=== PATIENT | male | born 1965 | race African-American/Black ===

== ENCOUNTER 2018-07-26 19:57 | Emergency (ER) | payer MEDICAID ==
[~2018-07-26] VITALS: Ht 172.7 cm; Wt 77.1 kg
[2018-07-26 20:12] VITALS: BP 143/74
[2018-07-26 22:01] LABS: Basophils # (auto) 0 uL; Basophils % (auto) 0.1 % (0.0-2.0); Eosinophils # (auto) 0 uL; Hemoglobin 11.1 g/dL (13.5-17.5); Lymphocytes # (auto) 0.9 uL; Lymphocytes % (auto) 5.5 % (10.0-50.0); Mean Corpuscular Hemoglobin 28.8 pg (28.0-32.0); Mean Corpuscular Hgb Conc. 32.7 g/dL (32.0-36.0); Mean Corpuscular Volume 88.1 fL (80.0-100.0); Monocytes # (auto) 1.3 uL; Monocytes % (auto) 8.1 % (0.0-12.0); Neutrophils % (auto) 86.3 % (37.0-80.0); Nucleated Red Blood Cells % 0.1 %; Platelet Count (auto) 224 10^3/uL (140-450); Red Blood Cells 3.85 10^6/uL (4.5-5.90); Red Cell Distribution Width 14.3 % (11.8-14.3); White Blood Cell 16.3 10^3/uL (4.4-10.8)
[2018-07-26 22:09] LABS: Calcium 8.7 mg/dL (8.5-10.1); Potassium 4.3 mmol/L (3.5-5.1)
[2018-07-26 22:16] LABS: Albumin 2.3 g/dL (3.4-5.0); BUN/Creatinine Ratio 21.8; Bilirubin, Total 0.8 mg/dL (0.2-1.0)
== END 2018-07-26 23:59 | disposition left against medical advice (07) ==
LOC: EDBD 19:57 → ER 19:57
DX: R11.2 Nausea with vomiting, unspecified (principal); Z53.21 Procedure and treatment not carried out due to patient leaving prior to being seen by health care provider
CPT/HCPCS: 36415; 80053; 85025

== ENCOUNTER 2018-08-01 16:49 | Inpatient (IN) | payer MEDICAID ==
[~2018-08-01] VITALS: Ht 182.9 cm; Wt 85.7 kg
[2018-08-01] MEDS ORDERED: SODIUM CHLORIDE 0.9% 1,000 ML IV ONE ×2 (18:32→21:00)
[2018-08-01] MEDS ORDERED: InsuLIN REG 1unit/0.01ml Soln (100units/ml) IV ONE ×2 (18:45→23:15)
[2018-08-01] MEDS ORDERED: OCTREOTIDE ACETATE 100 MCG in SODIUM CHL 0.9% 50 ML IV ONE (21:00)
[2018-08-01] MEDS: OCTREOTIDE ACETATE 500 MCG in SODIUM CHL 0.9% 99 ML IV SCH (21:30)
[2018-08-01] MEDS ORDERED: OCTREOTIDE ACETATE 500 MCG/ML VL ONE (21:32)
[2018-08-01] MEDS ORDERED: OCTREOTIDE ACETATE 100 MCG/ML VL ONE (21:32)
[2018-08-01 21:53] LABS: Basophils # (auto) 0 uL; Basophils % (auto) 0.1 % (0.0-2.0); Eosinophils # (auto) 0 uL; Eosinophils % (auto) 0.1 % (0.0-7.0); Hematocrit 37.2 % (41.0-53.0); Hemoglobin 11.7 g/dL (13.5-17.5); Lymphocytes # (auto) 0.8 uL; Lymphocytes % (auto) 3.3 % (10.0-50.0); Mean Corpuscular Hgb Conc. 31.5 g/dL (32.0-36.0); Mean Corpuscular Volume 89.1 fL (80.0-100.0); Monocytes # (auto) 1.4 uL; Monocytes % (auto) 5.4 % (0.0-12.0); Neutrophils # (auto) 22.8 uL; Neutrophils % (auto) 91.1 % (37.0-80.0); Platelet Count (auto) 378 10^3/uL (140-450); Red Blood Cells 4.17 10^6/uL (4.5-5.90); Red Cell Distribution Width 15.5 % (11.8-14.3)
[2018-08-01] MEDS ORDERED: LABETALOL HCL 5 MG/ML ML 20ML VIAL IV ONE (22:00)
[2018-08-01 22:18] LABS: Lactic Acid w/Reflex 2.3 mmol/L (0.4-2.0)
[2018-08-01 22:41] LABS: Albumin 1.6 g/dL (3.4-5.0); Anion Gap 21 (5-15); BUN/Creatinine Ratio 35.7; Blood Urea Nitrogen 60 mg/dL (7-18); Calcium 9.7 mg/dL (8.5-10.1); Carbon Dioxide 19 mmol/L (21-32); Chloride 99 mmol/L (98-107); GFR African American 55 mL/min; GFR Non-African American 45 mL/min; Magnesium 2.8 mg/dL (1.6-2.6); Potassium 4.8 mmol/L (3.5-5.1); Sodium 139 mmol/L (136-145)
[2018-08-01] MEDS ORDERED: SODIUM CHLORIDE 0.9% 2,000 ML IV ONE (22:45)
[2018-08-01 22:46] LABS: Alanine Aminotransferase 19 U/L (16-61); Alkaline Phosphatase 169 U/L (45-117); Aspartate Aminotransferase 31 U/L (15-37); Bilirubin, Total 1.7 mg/dL (0.2-1.0); Total Protein 8.7 g/dL (6.4-8.2)
[2018-08-01 22:53] LABS: Glucose 499 mg/dL (74-106)
[2018-08-01] MEDS ORDERED: InsuLIN R (HUMAN) 100 UNITS in SODIUM CHL 0.9% 99 ML IV SCH (23:15)
[2018-08-01] MEDS ORDERED: DEXTROSE (50%) 50ML SYRG IV PRN (23:15)
[2018-08-01] MEDS: SODIUM CHLORIDE 0.9% 1,000 ML IV SCH (23:26)
[2018-08-01] MEDS ORDERED: InsuLIN REG 1unit/0.01ml Soln (100units/ml) ONE (23:37)
[2018-08-01 23:41] LABS: INR 1.12 (0.9-1.15); Partial Thromboplastin Time 31.5 sec (23.78-33.04); Prothrombin Time 11.9 sec (9.27-12.13)
[2018-08-02] MEDS: ACCU-CHEK COMFORT CURVE STRIP VI SCH ×15 (00:18→21:22)
[2018-08-02] MEDS: SODIUM CHLORIDE 0.9% 1,000 ML IV SCH ×4 (01:31→18:57)
[2018-08-02] MEDS ORDERED: SODIUM CHLORIDE 0.9% 1,000 ML IV SCH (03:15)
[2018-08-02] MEDS ORDERED: PANTOPRAZOLE 40 MG/10 ML VIAL IV ONE (04:30)
[2018-08-02] MEDS ORDERED: VANCOMYCIN PER PHARMACY 0 MG IV SCH (04:45)
[2018-08-02] MEDS: PIPERACILLIN-TAZOB 3.375GM 100 ML IV SCH ×3 (06:07→18:56)
[2018-08-02 06:14] LABS: Calcium 9.5 mg/dL (8.5-10.1); Potassium 4.3 mmol/L (3.5-5.1)
[2018-08-02 06:16] LABS: BUN/Creatinine Ratio 39.2
[2018-08-02] MEDS ORDERED: OCTREOTIDE ACETATE 500 MCG/ML VL ONE (06:17)
[2018-08-02] MEDS: OCTREOTIDE ACETATE 500 MCG in SODIUM CHL 0.9% 99 ML IV SCH ×2 (06:26→16:12)
[2018-08-02 07:35] LABS: Urine Bacteria NONE SEEN /hpf (None Seen); Urine Blood Negative /uL (Negative); Urine Mucus FEW (None Seen); Urine WBC 1 /hpf (0 - 3)
[2018-08-02 08:40] LABS: Alcohol, Urine < 3.0 mg/dL (0-5); Amphetamine Screen, Urine NEGATIVE (NEGATIVE); Barbiturate Scree,Urine NEGATIVE (NEGATIVE); Benzodiazephine Screen, Urine NEGATIVE (NEGATIVE); Cannabinoid Screen, Urine NEGATIVE (NEGATIVE); Cocaine Screen, Urine NEGATIVE (NEGATIVE); Opiate Scree,Urine NEGATIVE (NEGATIVE); Phencyclidine Screen, Urine NEGATIVE (NEGATIVE)
[2018-08-02] MEDS ORDERED: VANCOMYCIN 1,250 MG in D5W 5% 250 ML IV ONE (09:00)
[2018-08-02] MEDS: PANTOPRAZOLE 40 MG/10 ML VIAL IV SCH ×2 (10:30→22:00)
[2018-08-02 10:48] LABS: BUN/Creatinine Ratio 36.6; Calcium 9.2 mg/dL (8.5-10.1); Potassium 3.9 mmol/L (3.5-5.1)
[2018-08-02] MEDS ORDERED: LIDOCAINE VISCOUS 2% 15ML UD ONE (13:02)
[2018-08-02] MEDS ORDERED: SODIUM CHLORIDE LOCK 10 ML ONE (13:02)
[2018-08-02] MEDS ORDERED: diphenhdrAMINE HCL 50 MG/1 ML VL ONE (13:03)
[2018-08-02] MEDS: MIDAZOLAM HCL 5 MG/ML-1ML VIAL ONE ×2 (13:45→13:48)
[2018-08-02] MEDS: fentaNYL CITRATE 100 MCG/2 ML VL ONE ×2 (13:45→13:48)
[2018-08-02 18:14] LABS: Basophils # (auto) 0 uL; Basophils % (auto) 0.1 % (0.0-2.0); Eosinophils # (auto) 0 uL; Eosinophils % (auto) 0.1 % (0.0-7.0); Hematocrit 34.1 % (41.0-53.0); Hemoglobin 10.6 g/dL (13.5-17.5); Lymphocytes # (auto) 1.2 uL; Lymphocytes % (auto) 4.6 % (10.0-50.0); Mean Corpuscular Hemoglobin 27.9 pg (28.0-32.0); Mean Corpuscular Volume 90.2 fL (80.0-100.0); Monocytes # (auto) 1.5 uL; Monocytes % (auto) 5.6 % (0.0-12.0); Neutrophils # (auto) 23.7 uL; Neutrophils % (auto) 89.6 % (37.0-80.0); Platelet Count (auto) 375 10^3/uL (140-450); Red Blood Cells 3.78 10^6/uL (4.5-5.90); Red Cell Distribution Width 15.9 % (11.8-14.3); White Blood Cell 26.4 10^3/uL (4.4-10.8)
[2018-08-02 18:35] LABS: BUN/Creatinine Ratio 32.8; Calcium 8.7 mg/dL (8.5-10.1); Potassium 4.1 mmol/L (3.5-5.1)
[2018-08-02 18:52] LABS: Magnesium 2.3 mg/dL (1.6-2.6); Phosphorus 1.8 mg/dL (2.5-4.90)
[2018-08-02] MEDS ORDERED: DEXTROSE (50%) 50ML SYRG IV PRN (22:15)
[2018-08-02] MEDS ORDERED: VANCOMYCIN 1GM/250ML 250 ML IV SCH (22:45)
--- NOTE | 2018-08-02 22:48 | NUR ---
Telemetry admit from [facility] admitted to Telemetry unit. Patient oriented to Adriana crockett RN, unit, room, bed, and unit policies regarding patient care and visiting hours. Patient now on continuous telemetry monitoring, tele box #43. Patient on room air and weighed by bedscale. Encouraged to call if he needs something. All questions and concerns addressed, patient verbalized understanding.
[2018-08-02 22:50] VITALS: BP 133/74
--- NOTE | 2018-08-02 23:30 | NUR ---
Unable to give antibiotic Patient due for Vanco but unable to get medication from [facility] because patient is not in the system yet. Will continue to check so I can administer medication. Patient also due for Zosyn at 0000, will give after Vanco.
[2018-08-03] MEDS ORDERED: HYDROcodone-ACET 5/325MG TAB PO PRN ×2 (00:55→10:45)
[2018-08-03] MEDS: PIPERACILLIN-TAZOB 3.375GM 100 ML IV SCH ×4 (02:11→20:25)
--- NOTE | 2018-08-03 02:38 | NUR ---
Hospitalist paged Patient requesting juice, checked patients blood sugar and it was 307. Hospitalist paged, will await call back. Will continue to monitor patient.
--- NOTE | 2018-08-03 02:50 | NUR ---
Hospitalist returned call Informed [place] of patients blood sugar and she gave orders to change Accu check to Q4 moderate scale. Orders repeated and confirmed.
[2018-08-03] MEDS: OCTREOTIDE ACETATE 500 MCG in SODIUM CHL 0.9% 99 ML IV SCH (03:00)
[2018-08-03] MEDS ORDERED: DEXTROSE (50%) 50ML SYRG IV PRN (03:30)
[2018-08-03] MEDS: ACCU-CHEK COMFORT CURVE STRIP VI SCH ×5 (03:31→20:25)
[2018-08-03] MEDS: InsuLIN REG 1unit/0.01ml Soln (100units/ml) SC SCH ×5 (03:35→20:37)
[2018-08-03 05:38] VITALS: BP 147/88
[2018-08-03] MEDS ORDERED: ACCU-CHEK COMFORT CURVE STRIP VI SCH ×2 (06:00→07:00)
--- NOTE | 2018-08-03 06:33 | NUR ---
Called Pharmacy Informed pharmacy that Vanco was given past the scheduled time, and Zosyn was given after Vanco. They said they will adjust the times for both medications.
--- NOTE | 2018-08-03 06:45 | NUR ---
Called Pharmacy regarding missing medication Patient had Sandostatin scheduled for 0300 but the medication was not found in any of the fridges. Informed pharmacy of this and they said that they will send up the medication and adjust the times.
[2018-08-03] MEDS ORDERED: InsuLIN REG 1unit/0.01ml Soln (100units/ml) SC SCH ×2 (07:00→22:00)
--- NOTE | 2018-08-03 07:30 | NUR ---
Opening Shift Note Assumed care of patient, awake and alert. No S/S of distress/SOB or pain. HOB semi-canada's position, side-rails up x2 for safety. Call light on hand, instructed on POC and to call for assist PRN, will continue to monitor for changes Q1hr and PRN.
[2018-08-03 07:39] LABS: Basophils # (auto) 0 uL; Basophils % (auto) 0.1 % (0.0-2.0); Eosinophils # (auto) 0 uL; Eosinophils % (auto) 0.1 % (0.0-7.0); Hemoglobin 9.2 g/dL (13.5-17.5); Lymphocytes # (auto) 1.7 uL; Lymphocytes % (auto) 6.8 % (10.0-50.0); Mean Corpuscular Hemoglobin 27.7 pg (28.0-32.0); Mean Corpuscular Hgb Conc. 31.8 g/dL (32.0-36.0); Mean Corpuscular Volume 87.3 fL (80.0-100.0); Monocytes # (auto) 1.2 uL; Monocytes % (auto) 4.9 % (0.0-12.0); Neutrophils # (auto) 21.5 uL; Neutrophils % (auto) 88.1 % (37.0-80.0); Platelet Count (auto) 283 10^3/uL (140-450); Red Blood Cells 3.32 10^6/uL (4.5-5.90); Red Cell Distribution Width 15.4 % (11.8-14.3); White Blood Cell 24.4 10^3/uL (4.4-10.8)
[2018-08-03 07:40] LABS: Albumin 1.2 g/dL (3.4-5.0); BUN/Creatinine Ratio 25.6; Calcium 7.8 mg/dL (8.5-10.1)
[2018-08-03 07:43] LABS: Bilirubin, Total 1.1 mg/dL (0.2-1.0); Total Protein 6.6 g/dL (6.4-8.2)
[2018-08-03 08:00] VITALS: BP 137/80
--- NOTE | 2018-08-03 08:00 | NUR ---
WOUND CARE Serosanguineous drainage with strong foul odor noted from wound of dorsal portion of left foot. Cleansed with wound cleanser and patted dry with sterile gauze. Patient tolerated well.
[2018-08-03 09:00] VITALS: BP 132/77
[2018-08-03] MEDS ORDERED: ONDANSETRON HCL 4 MG/2 ML VIAL IV PRN (10:45)
[2018-08-03] MEDS ORDERED: LORazepam 2MG/ML-1ML VIAL IV ONE (10:45)
[2018-08-03] MEDS: SODIUM CHLORIDE 0.9% 1,000 ML IV SCH ×2 (10:45→20:45)
[2018-08-03] MEDS: PANTOPRAZOLE 40 MG/10 ML VIAL IV SCH ×2 (11:59→22:26)
[2018-08-03] MEDS: VANCOMYCIN 1GM/250ML 250 ML IV SCH (11:59)
[2018-08-03 13:00] VITALS: BP 161/87
--- NOTE | 2018-08-03 16:15 | NUR ---
WOUND CARE NOTE: Wound care consult received. Patient is a 53yo male admitted for DKA with a history of HTN, diabetes, hyperlipidemia and Rt BKA. Patient noted to have wounds to left foot, right knee and left leg. Patient is seen with bedside RN, Lorna. Patient is alert but drowsy, denies pain. Last Panfilo score is 19. Patient with small wound to right knee, 1.5x1.5cm, open to air, covered with a serous scab. On left lower leg patient with a wound 5x7cm of unknown with etiology but appears to be a dried blister and is open to air. Patient's dorsal left foot with large necrotic wound measuring [id number] draining foul smelling drainage and to the plantar left foot a diabetic measures 3x2cm with no drainage. Patient with a pending podiatry consult. RECOMMENDATIONS: Nursing to cleanse left foot wounds with wound cleanser, pat dry, paint with betadine, cover with foam dressing, wrap with kerlex and secure, change daily and PRN saturation; further orders to be directed by clinical informatics manager; wound care team to follow. Addendum: 08/03/18 at 1847 by ALMAZ RICCI RN Amended: Links added.
[2018-08-03] MEDS: MORPHINE SULFATE 4 MG/ML SYR/VIAL IV PRN ×2 (16:27→20:38)
[2018-08-03 17:00] VITALS: BP 150/84
--- NOTE | 2018-08-03 17:00 | NUR ---
CALLED [phone]. TO OBTAIN HOME MEDICATIONS. NO REPLY, LEFT A MESSAGE AND CALL- BACK NUMBER.
--- NOTE | 2018-08-03 19:05 | NUR ---
Opening Shift Note Assumed care of patient, resting in bed. No S/S of distress or SOB. Instructed on POC and to call for assistance PRN, will continue to monitor for changes Q1hr and PRN.
[2018-08-03] MEDS ORDERED: INSUINJ48 SC (20:50)
[2018-08-03] MEDS ORDERED: LISI40TA PO (20:50)
[2018-08-03] MEDS ORDERED: ATOR1TAB PO (20:50)
[2018-08-03] MEDS ORDERED: DULO1CAP2 PO (20:50)
[2018-08-03] MEDS ORDERED: INSREG3 SC (20:50)
[2018-08-03] MEDS ORDERED: METF-370 PO (20:50)
[2018-08-03] MEDS ORDERED: AMLO5TAB13 PO (20:50)
--- NOTE | 2018-08-03 20:50 | NUR ---
HOME MEDICATIONS SPOKE WITH DAUGHTER, PETRA, RECEIVED LIST OF HOME MEDICATIONS. RECONCILED MEDICATION LIST COMPLETED--PRIMARY RN MADE AWARE
[2018-08-03 22:00] VITALS: BP 128/78
[2018-08-03] MEDS: INSULIN LANTUS (GLARGINE) 1 /0.01ml (100units/ml) SC SCH (22:26)
[2018-08-04] VITALS (7 sets, daily range): BP systolic 132–149; BP diastolic 76–88
[2018-08-04] MEDS: ACCU-CHEK COMFORT CURVE STRIP VI SCH ×6 (00:14→21:32)
[2018-08-04] MEDS: VANCOMYCIN 1GM/250ML 250 ML IV SCH ×2 (00:14→12:00)
[2018-08-04] MEDS: InsuLIN REG 1unit/0.01ml Soln (100units/ml) SC SCH ×6 (00:18→21:34)
[2018-08-04] MEDS: PIPERACILLIN-TAZOB 3.375GM 100 ML IV SCH ×4 (02:27→20:28)
[2018-08-04] MEDS: MORPHINE SULFATE 4 MG/ML SYR/VIAL IV PRN ×3 (04:17→16:37)
[2018-08-04 06:39] LABS: Basophils # (auto) 0 uL; Basophils % (auto) 0.1 % (0.0-2.0); Eosinophils # (auto) 0 uL; Eosinophils % (auto) 0.2 % (0.0-7.0); Hematocrit 29.1 % (41.0-53.0); Hemoglobin 9.3 g/dL (13.5-17.5); Lymphocytes # (auto) 1.7 uL; Lymphocytes % (auto) 8.5 % (10.0-50.0); Mean Corpuscular Hemoglobin 27.6 pg (28.0-32.0); Mean Corpuscular Hgb Conc. 31.9 g/dL (32.0-36.0); Mean Corpuscular Volume 86.7 fL (80.0-100.0); Monocytes % (auto) 4.9 % (0.0-12.0); Neutrophils # (auto) 17.4 uL; Neutrophils % (auto) 86.3 % (37.0-80.0); Nucleated Red Blood Cells % 0.1 %; Platelet Count (auto) 260 10^3/uL (140-450); Red Blood Cells 3.36 10^6/uL (4.5-5.90); Red Cell Distribution Width 15.3 % (11.8-14.3); White Blood Cell 20.1 10^3/uL (4.4-10.8)
[2018-08-04] MEDS: SODIUM CHLORIDE 0.9% 1,000 ML IV SCH ×2 (06:45→10:00)
[2018-08-04 06:47] LABS: BUN/Creatinine Ratio 21.5; Calcium 8.3 mg/dL (8.5-10.1); Potassium 3.5 mmol/L (3.5-5.1)
[2018-08-04] MEDS: PANTOPRAZOLE 40 MG TAB PO SCH ×2 (10:00→22:15)
--- NOTE | 2018-08-04 13:45 | NUR ---
NUTRITION CONSULT/ASSESSMENT NOTES Please refer to link notes of nutrition screen form filed under the intervention section of the plan of care for further details. Est. Needs: 1800 kcal to 2450 kcal (25-30 kcal/kgBW), 82 gms to 114 gms pro (1.0-1.4 gms/kgBW d/t severe hypoalbuminemia, wound healing). Will continue to monitor pertinent labs and reassess nutrient need prn Thank you for this consult. Addendum: 08/04/18 at [address] Amended: Links added.
--- NOTE | 2018-08-04 15:54 | NUR ---
PICC line placement Patient educated on need for PICC line placement. All risks and benefits explained and all questions and concerns addressed prior to procedure. Noted past medical history and allergies with no contraindications. INR and Plt counts within acceptable range. 4fr PICC line inserted the right brachial vein using [employer] US and Tip Location System. Sterile technique with maximum barrier precautions utilized. Blood return obtained and flushed easily with NS using proper technique. PICC secured with Stat-lock; biodisc and occlusive dressing applied. Stat portable chest x-ray obtained for PICC tip placement. *Baseline Arm Circumference 30CM. PICC lot # [id number] INTERNAL LENGTH: 47 CM EXTERNAL LENGTH 0 CM.
[2018-08-04] MEDS ORDERED: LIDOCAINE 1% (LOCAL ANESTH.) PF 5ml SDV ID ONE (16:15)
[2018-08-04] MEDS: Pro-Stat SF 30ml Vanilla PO SCH (18:00)
--- NOTE | 2018-08-04 19:45 | NUR ---
OPENING NOTES PT IS AWAKE AND ALERT X 4 WHILE ON ROOM AIR AND NO S/S OF DISTRESS. DRESSING ON LEFT FOOT CLEAN, DRY, AND INTACT. BED IN LOWEST POSITION WITH THE BRAKES ON AND CALL LIGHT IS WITHIN REACH. DISCUSSED POC WITH PATIENT, WILL CONTINUE TO MONITOR
[2018-08-04] MEDS: ASCORBIC ACID 500 MG TAB PO SCH (22:15)
[2018-08-04] MEDS: SODIUM CHLOR 0.9% PF (SALINE LOCK) 10ML VIAL/SYR IV SCH (22:15)
[2018-08-04] MEDS: INSULIN LANTUS (GLARGINE) 1 /0.01ml (100units/ml) SC SCH (22:35)
--- NOTE | 2018-08-05 00:30 | NUR ---
TEMP PATIENT FOUND IN BED AND VOMITED WHEN TURNED. VOMITUS WAS DARK GREEN SUBSTANCE. ALOC A&OX1 VS: TEMP 103.2 RECTAL; BP 86/54; HR 117; SPO2 82 AT 6L N/C. WILL START COOLING MEASURE. Addendum: 08/05/18 at 0335 by KIMMIE SILVA RN RN DISREGARD WRONG PATIENT
--- NOTE | 2018-08-05 00:35 | NUR ---
HOSPITALIST HOSPITALIST PAGED REGARDING PATIENTS CONDITION. AWAITING CALL BACK Addendum: 08/05/18 at 0335 by KIMMIE SILVA RN RN DISREGARD WRONG PATIENT
[2018-08-05] MEDS: ACCU-CHEK COMFORT CURVE STRIP VI SCH ×6 (01:43→23:09)
[2018-08-05] MEDS: VANCOMYCIN 1GM/250ML 250 ML IV SCH ×2 (01:43→12:50)
[2018-08-05] MEDS: MORPHINE SULFATE 4 MG/ML SYR/VIAL IV PRN ×2 (01:45→08:22)
[2018-08-05] MEDS: InsuLIN REG 1unit/0.01ml Soln (100units/ml) SC SCH ×6 (01:57→23:08)
[2018-08-05] MEDS: PIPERACILLIN-TAZOB 3.375GM 100 ML IV SCH ×2 (03:26→08:21)
[2018-08-05] MEDS: SODIUM CHLORIDE 0.9% 1,000 ML IV SCH (03:26)
[2018-08-05 05:07] VITALS: BP 128/65
[2018-08-05] MEDS: Pro-Stat SF 30ml Vanilla PO SCH ×2 (07:36→17:05)
--- NOTE | 2018-08-05 08:00 | NUR ---
Opening Shift Note Assumed care of patient, awake, alert and oriented X4. No S/S of distress/SOB, complains of left foot pain, 8/10, Lopez Cabrera scale. Tele# 43, sinus tachycardia @ 101 bpm. Right upper arm PICC single lumen port with dressing clean, dry and intact, patent and saline locked. Right AKA with healed stump, left foot dressing clean, dry an intact, see wound care photos. Instructed on POC and to call for assist PRN, verbalized understanding. Bed locked, in lowest position, call light within reach, will continue to monitor for changes Q1hr and PRN.
[2018-08-05 08:28] LABS: Basophils # (auto) 0 uL; Basophils % (auto) 0.1 % (0.0-2.0); Eosinophils # (auto) 0.1 uL; Eosinophils % (auto) 0.4 % (0.0-7.0); Hematocrit 28.6 % (41.0-53.0); Hemoglobin 9.1 g/dL (13.5-17.5); Lymphocytes # (auto) 1.8 uL; Lymphocytes % (auto) 9.2 % (10.0-50.0); Mean Corpuscular Hemoglobin 27.4 pg (28.0-32.0); Mean Corpuscular Hgb Conc. 31.9 g/dL (32.0-36.0); Monocytes # (auto) 0.9 uL; Monocytes % (auto) 4.4 % (0.0-12.0); Neutrophils # (auto) 17.3 uL; Neutrophils % (auto) 85.9 % (37.0-80.0); Platelet Count (auto) 242 10^3/uL (140-450); Red Blood Cells 3.33 10^6/uL (4.5-5.90); Red Cell Distribution Width 15.1 % (11.8-14.3); White Blood Cell 20.1 10^3/uL (4.4-10.8)
[2018-08-05 08:51] LABS: BUN/Creatinine Ratio 14.4; Calcium 8.1 mg/dL (8.5-10.1); Potassium 3.2 mmol/L (3.5-5.1)
[2018-08-05 09:38] VITALS: BP 145/67
[2018-08-05] MEDS: SODIUM CHLOR 0.9% PF (SALINE LOCK) 10ML VIAL/SYR IV SCH ×2 (09:41→23:06)
[2018-08-05] MEDS: ASCORBIC ACID 500 MG TAB PO SCH ×2 (09:42→23:07)
[2018-08-05] MEDS: MULTIPLE VITAMINS W/ MINERALS TAB PO SCH (09:42)
[2018-08-05] MEDS: PANTOPRAZOLE 40 MG TAB PO SCH ×2 (09:42→23:06)
[2018-08-05] MEDS ORDERED: POTASSIUM CHL 20 Meq TABLET PO ONE (10:15)
[2018-08-05] MEDS ORDERED: DEXTROSE (50%) 50ML SYRG IV PRN (10:15)
--- NOTE | 2018-08-05 10:15 | NUR ---
ROUNDS Dr Eckert at bedside for rounds, new orders received and followed through. Patient updated on plan of care, verbalized understanding.
[2018-08-05 12:02] VITALS: BP 139/70
[2018-08-05] MEDS: cefTRIAXone 1GM/50ML D5W 50 ML IV SCH (14:04)
[2018-08-05 16:46] VITALS: BP 97/54
--- NOTE | 2018-08-05 19:13 | NUR ---
Care endorsed to FATOUMATA Herrera, night nurse.
--- NOTE | 2018-08-05 19:30 | NUR ---
received pt from day rn poc reviewed
[2018-08-05 21:53] VITALS: BP 115/64
[2018-08-05] MEDS: INSULIN LANTUS (GLARGINE) 1 /0.01ml (100units/ml) SC SCH (23:08)
[2018-08-06] MEDS: VANCOMYCIN 1GM/250ML 250 ML IV SCH ×2 (00:16→11:42)
[2018-08-06] MEDS: MORPHINE SULFATE 4 MG/ML SYR/VIAL IV PRN ×3 (01:03→17:20)
--- NOTE | 2018-08-06 01:15 | NUR ---
awoke c/o pain 03/17 medicated as ordered, call light within reach, bed alarm intact
[2018-08-06 05:26] VITALS: BP 130/71
[2018-08-06 05:46] LABS: Basophils # (auto) 0 uL; Basophils % (auto) 0.1 % (0.0-2.0); Eosinophils # (auto) 0.1 uL; Eosinophils % (auto) 0.7 % (0.0-7.0); Hematocrit 27.7 % (41.0-53.0); Hemoglobin 8.8 g/dL (13.5-17.5); Lymphocytes # (auto) 2.2 uL; Lymphocytes % (auto) 12.2 % (10.0-50.0); Mean Corpuscular Hemoglobin 27.3 pg (28.0-32.0); Mean Corpuscular Hgb Conc. 31.6 g/dL (32.0-36.0); Mean Corpuscular Volume 86.4 fL (80.0-100.0); Monocytes # (auto) 0.8 uL; Monocytes % (auto) 4.5 % (0.0-12.0); Neutrophils # (auto) 14.7 uL; Neutrophils % (auto) 82.5 % (37.0-80.0); Platelet Count (auto) 226 10^3/uL (140-450); Red Cell Distribution Width 15.2 % (11.8-14.3); White Blood Cell 17.8 10^3/uL (4.4-10.8)
[2018-08-06 06:10] LABS: Potassium 3.7 mmol/L (3.5-5.1)
[2018-08-06 06:21] LABS: BUN/Creatinine Ratio 11.5; Calcium 8.1 mg/dL (8.5-10.1)
[2018-08-06] MEDS: ACCU-CHEK COMFORT CURVE STRIP VI SCH ×4 (06:58→22:30)
[2018-08-06] MEDS: InsuLIN REG 1unit/0.01ml Soln (100units/ml) SC SCH ×4 (06:59→22:32)
--- NOTE | 2018-08-06 07:07 | NUR ---
report given to am nurse poc reviewed
[2018-08-06 08:14] VITALS: BP 122/57
--- NOTE | 2018-08-06 09:00 | NUR ---
Opening Shift Note Assumed care of patient, awake and alert, oriented x 4 and verbally responsive. Respiratory even and unlabored. No S/S of distress/SOB or pain. Skin is warm and dry to touch, no s/s of hyperglycemia or hypoglycemia noted. Instructed on POC and to call for assist PRN, will continue to monitor for changes Q1hr and PRN.
[2018-08-06] MEDS: PANTOPRAZOLE 40 MG TAB PO SCH ×2 (09:05→22:29)
[2018-08-06] MEDS: SODIUM CHLOR 0.9% PF (SALINE LOCK) 10ML VIAL/SYR IV SCH ×2 (09:05→22:29)
[2018-08-06] MEDS: MULTIPLE VITAMINS W/ MINERALS TAB PO SCH (09:05)
[2018-08-06] MEDS: cefTRIAXone 1GM/50ML D5W 50 ML IV SCH (09:05)
[2018-08-06] MEDS: ASCORBIC ACID 500 MG TAB PO SCH ×2 (09:05→22:29)
[2018-08-06] MEDS: Pro-Stat SF 30ml Vanilla PO SCH ×2 (09:06→18:03)
[2018-08-06 09:24] VITALS: BP 122/57
[2018-08-06 12:10] VITALS: BP 134/68
[2018-08-06 17:03] VITALS: BP 138/76
[2018-08-06] MEDS: ALUM & MAG HYDROX-SIMETH LIQ(MAALOX) 30 ML PO PRN (17:38)
[2018-08-06] MEDS: LEVOFLOXACIN 750MG 150 ML IV SCH (17:38)
--- NOTE | 2018-08-06 19:57 | NUR ---
RECEIVED REPORT FROM DAY RN POC REVIEWED
[2018-08-06 21:58] VITALS: BP 135/76
--- NOTE | 2018-08-06 22:16 | NUR ---
RESTING COMFORTABLE WITH HOB UP BED ALARM INTACT CALL LIGHT WITHIN REACH
[2018-08-06] MEDS: INSULIN LANTUS (GLARGINE) 1 /0.01ml (100units/ml) SC SCH (22:31)
[2018-08-07] VITALS (7 sets, daily range): BP systolic 110–150; BP diastolic 64–78
[2018-08-07] MEDS: MORPHINE SULFATE 4 MG/ML SYR/VIAL IV PRN (05:31)
[2018-08-07 05:54] LABS: Basophils # (auto) 0 uL; Eosinophils # (auto) 0.1 uL; Eosinophils % (auto) 0.4 % (0.0-7.0); Hematocrit 23.8 % (41.0-53.0); Lymphocytes # (auto) 1.8 uL; Mean Corpuscular Hemoglobin 28.4 pg (28.0-32.0); Nucleated Red Blood Cells % 0.1 %; Red Cell Distribution Width 14.8 % (11.8-14.3)
[2018-08-07 05:58] LABS: Basophils % (auto) 0.2 % (0.0-2.0); Hemoglobin 7.8 g/dL (13.5-17.5); Lymphocytes % (auto) 11.4 % (10.0-50.0); Mean Corpuscular Hgb Conc. 32.9 g/dL (32.0-36.0); Mean Corpuscular Volume 86.6 fL (80.0-100.0); Monocytes % (auto) 6.4 % (0.0-12.0); Neutrophils % (auto) 81.6 % (37.0-80.0); Platelet Count (auto) 206 10^3/uL (140-450); Red Blood Cells 2.75 10^6/uL (4.5-5.90); White Blood Cell 15.9 10^3/uL (4.4-10.8)
[2018-08-07] MEDS: ACCU-CHEK COMFORT CURVE STRIP VI SCH ×4 (06:01→22:00)
[2018-08-07] MEDS: InsuLIN REG 1unit/0.01ml Soln (100units/ml) SC SCH ×4 (06:02→21:59)
--- NOTE | 2018-08-07 06:53 | NUR ---
REPORT GIVEN TO AM NURSE POC REVIEWED
--- NOTE | 2018-08-07 07:30 | NUR ---
Opening Shift Note Assumed care of patient, awake and alert, oriented x4 and verbally responsive. Respiratory even and unlabored. No S/S of distress/SOB or pain. Skin is warm and dry to touch. No s/s of hyperglycemia or hypoglycemia noted. Dressing to left foot, dry, intact, no drainage noted. Instructed on POC and to call for assist PRN, will continue to monitor for changes Q1hr and PRN.
[2018-08-07] MEDS: Pro-Stat SF 30ml Vanilla PO SCH ×2 (08:23→18:03)
--- NOTE | 2018-08-07 08:32 | NUR ---
Received a call from [facility] ([facility]) regarding patient has Medical cannot get IV ATB at home. Will notify hospitalist.
[2018-08-07] MEDS: ASCORBIC ACID 500 MG TAB PO SCH ×2 (08:56→21:59)
[2018-08-07] MEDS: MULTIPLE VITAMINS W/ MINERALS TAB PO SCH (08:56)
[2018-08-07] MEDS: PANTOPRAZOLE 40 MG TAB PO SCH ×2 (08:56→21:59)
[2018-08-07] MEDS: ALUM & MAG HYDROX-SIMETH LIQ(MAALOX) 30 ML PO PRN (08:58)
[2018-08-07] MEDS: SODIUM CHLOR 0.9% PF (SALINE LOCK) 10ML VIAL/SYR IV SCH ×2 (09:00→21:58)
[2018-08-07] MEDS ORDERED: MORPHINE SULFATE 4 MG/ML SYR/VIAL IV PRN (10:30)
--- NOTE | 2018-08-07 10:36 | NUR ---
SS ORDER FOR HOME IV ABX. I FAXED TO [facility] FOR INFUSION AND TO SEE IF THEY HAVE HH ATTACHED TO THEIR INFUSION COMPANY ALSO TO SEE IF THEY EVEN TAKE MEDICAL
--- NOTE | 2018-08-07 10:43 | NUR ---
Dressing change to left foot, cleanse left foot wounds with wound cleanser, pat dry, paint with betadine, cover with foam dressing, wrap with kerlex and secure.
[2018-08-07] MEDS: HYDROcodone-ACET 5/325MG TAB PO PRN (12:06)
--- NOTE | 2018-08-07 12:09 | NUR ---
T 99.8, cooling measure placed.
--- NOTE | 2018-08-07 13:00 | NUR ---
T 98.2, WILL CONTINUE TO MONITOR.
--- NOTE | 2018-08-07 13:42 | NUR ---
[facility] has refused pt due to insurance
[2018-08-07] MEDS: VANCOMYCIN 1GM/250ML 250 ML IV SCH (14:03)
--- NOTE | 2018-08-07 16:24 | NUR ---
PRIMARY RN NOTIFIED THAT PT WAS REFUSED BY INFUSION COMPANY
[2018-08-07] MEDS: LEVOFLOXACIN 750MG 150 ML IV SCH (18:38)
--- NOTE | 2018-08-07 19:00 | NUR ---
Opening Shift Note Assumed care of the patient from the day shift RN. The patient is A&Ox4, no signs or symptoms of distress. Educated the patient on POC and patient verbalized understanding. The patient's call light is within reach and bed is in the lowest, locked position. Will round hourly and continue to monitor.
[2018-08-07] MEDS: MORPHINE SULFATE 10 MG/ML INJ 1ML SDV IV PRN (20:44)
[2018-08-07] MEDS: INSULIN LANTUS (GLARGINE) 1 /0.01ml (100units/ml) SC SCH (21:59)
[2018-08-08] VITALS (14 sets, daily range): BP systolic 111–153; BP diastolic 53–101
[2018-08-08] MEDS: VANCOMYCIN 1GM/250ML 250 ML IV SCH (01:39)
[2018-08-08] MEDS: MORPHINE SULFATE 10 MG/ML INJ 1ML SDV IV PRN ×2 (03:45→20:33)
[2018-08-08 05:31] LABS: Basophils # (auto) 0 uL; Eosinophils # (auto) 0.1 uL; Eosinophils % (auto) 0.4 % (0.0-7.0); Lymphocytes # (auto) 1.7 uL; Nucleated Red Blood Cells % 0.1 %; White Blood Cell 13.9 10^3/uL (4.4-10.8)
[2018-08-08 05:34] LABS: Basophils % (auto) 0.1 % (0.0-2.0); Hematocrit 18.4 % (41.0-53.0); Mean Corpuscular Hemoglobin 28.3 pg (28.0-32.0); Mean Corpuscular Hgb Conc. 32.5 g/dL (32.0-36.0); Mean Corpuscular Volume 87.1 fL (80.0-100.0); Monocytes % (auto) 7.1 % (0.0-12.0); Neutrophils # (auto) 11.2 uL; Neutrophils % (auto) 80.4 % (37.0-80.0); Platelet Count (auto) 223 10^3/uL (140-450); Red Blood Cells 2.12 10^6/uL (4.5-5.90)
[2018-08-08 05:54] LABS: Calcium 8.1 mg/dL (8.5-10.1); Potassium 4.1 mmol/L (3.5-5.1)
--- NOTE | 2018-08-08 05:58 | NUR ---
Critical Hgb Roger from Hematology reported a hgb of 6.0. Will notify hospitalist for orders.
[2018-08-08] MEDS: ACCU-CHEK COMFORT CURVE STRIP VI SCH ×4 (06:33→22:39)
[2018-08-08] MEDS: InsuLIN REG 1unit/0.01ml Soln (100units/ml) SC SCH ×4 (06:33→22:40)
--- NOTE | 2018-08-08 06:35 | NUR ---
Orders Received HospitalistValentin, returned page regarding low hemoglobin. Orders for type and screen and 1 unit of packed RBCs. Will carry out and continue to monitor.
--- NOTE | 2018-08-08 07:30 | NUR ---
Opening Shift Note Assumed care of patient, awake and alert, oriented x 4 and verbally responsive. Respiratory even and unlabored. No S/S of distress/SOB or pain. Skin is warm and dry to touch. No s/s of hyperglycemia or hypoglycemia noted. Instructed on POC and to call for assist PRN, will continue to monitor for changes Q1hr and PRN.
--- NOTE | 2018-08-08 08:00 | NUR ---
T 99.2, cooling measure placed, will continue to monitor.
--- NOTE | 2018-08-08 08:55 | NUR ---
Blood Initiated Order received and verified with additional nurse by read back. Baseline vitals obtained and charted. Patient no complaints of pain. Initiated at rate 60 for 15 mins then increased as tolerated. Will continue to monitor patient for change or indications of reaction. Additional charting as follows in [facility] transfusion history.
[2018-08-08] MEDS: MULTIPLE VITAMINS W/ MINERALS TAB PO SCH (09:00)
[2018-08-08] MEDS: SODIUM CHLOR 0.9% PF (SALINE LOCK) 10ML VIAL/SYR IV SCH ×2 (09:00→22:39)
[2018-08-08] MEDS: Pro-Stat SF 30ml Vanilla PO SCH ×2 (09:00→18:20)
[2018-08-08] MEDS: PANTOPRAZOLE 40 MG TAB PO SCH ×2 (09:00→22:24)
[2018-08-08] MEDS: ASCORBIC ACID 500 MG TAB PO SCH ×2 (09:00→22:24)
[2018-08-08 09:08] LABS: BUN/Creatinine Ratio 10.7
--- NOTE | 2018-08-08 09:18 | NUR ---
Recheck T 98.6, will continue to monitor.
[2018-08-08] MEDS ORDERED: CLINDAMYCIN 600MG IV 50 ML IV ONE (10:15)
[2018-08-08] MEDS: FLORASTOR (S. BOULARDII) 250 MG CAP PO SCH (10:31)
[2018-08-08] MEDS: HYDROcodone-ACET 5/325MG TAB PO PRN ×2 (10:31→22:37)
[2018-08-08] MEDS: ACETAMINOPHEN 500 MG TAB PO PRN (12:31)
[2018-08-08] MEDS: CLINDAMYCIN 600MG IV 50 ML IV SCH ×2 (13:50→22:25)
--- NOTE | 2018-08-08 16:05 | NUR ---
Dressing change to left foot, cleanse left foot wounds with wound cleanser, pat dry, paint with betadine, cover with foam dressing, wrap with kerlex and secure.
[2018-08-08] MEDS: LEVOFLOXACIN 750MG 150 ML IV SCH (17:30)
[2018-08-08] MEDS: ALUM & MAG HYDROX-SIMETH LIQ(MAALOX) 30 ML PO PRN (20:31)
--- NOTE | 2018-08-08 21:01 | NUR ---
Opening shift note Patient in bed alert and oriented x 4, verbally coherent, able to make needs known. Patient complained of pain to left leg and stomach distress. will administer medication as ordered by MD. Plan of care discussed, patient verbalized understanding. All needs attended, will continue to monitor.
[2018-08-08] MEDS: INSULIN LANTUS (GLARGINE) 1 /0.01ml (100units/ml) SC SCH (22:40)
[2018-08-09] VITALS (7 sets, daily range): BP systolic 113–133; BP diastolic 60–90
[2018-08-09] MEDS: MORPHINE SULFATE 10 MG/ML INJ 1ML SDV IV PRN ×5 (00:20→22:10)
--- NOTE | 2018-08-09 05:00 | NUR ---
Unable to draw blood from the PICC line. Cruise Guide made aware and informed.
[2018-08-09 05:48] LABS: Basophils # (auto) 0 uL; Basophils % (auto) 0.1 % (0.0-2.0); Eosinophils # (auto) 0.1 uL; Eosinophils % (auto) 0.6 % (0.0-7.0); Hematocrit 28.1 % (41.0-53.0); Hemoglobin 9.1 g/dL (13.5-17.5); Lymphocytes # (auto) 1.9 uL; Lymphocytes % (auto) 13.4 % (10.0-50.0); Mean Corpuscular Hgb Conc. 32.6 g/dL (32.0-36.0); Monocytes # (auto) 0.9 uL; Monocytes % (auto) 6.6 % (0.0-12.0); Neutrophils # (auto) 11.1 uL; Neutrophils % (auto) 79.3 % (37.0-80.0); Nucleated Red Blood Cells % 0.1 %; Platelet Count (auto) 289 10^3/uL (140-450); Red Blood Cells 3.26 10^6/uL (4.5-5.90); White Blood Cell 14.1 10^3/uL (4.4-10.8)
[2018-08-09] MEDS: CLINDAMYCIN 600MG IV 50 ML IV SCH ×3 (06:20→21:42)
[2018-08-09] MEDS: ACCU-CHEK COMFORT CURVE STRIP VI SCH ×4 (06:20→21:43)
[2018-08-09] MEDS: InsuLIN REG 1unit/0.01ml Soln (100units/ml) SC SCH ×4 (06:21→21:57)
[2018-08-09] MEDS: Pro-Stat SF 30ml Vanilla PO SCH ×2 (08:00→18:26)
--- NOTE | 2018-08-09 08:00 | NUR ---
Opening Shift Note Assumed care of patient, awake and alert. No S/S of distress/SOB or pain at this time. Currently on room air. Instructed on POC and to call for assist PRN, call light within reach, dressing to left foot CDI, will continue to monitor for changes Q1hr and PRN.
[2018-08-09] MEDS: SODIUM CHLOR 0.9% PF (SALINE LOCK) 10ML VIAL/SYR IV SCH ×2 (10:00→21:42)
[2018-08-09] MEDS: PANTOPRAZOLE 40 MG TAB PO SCH ×2 (10:06→21:41)
[2018-08-09] MEDS: MULTIPLE VITAMINS W/ MINERALS TAB PO SCH (10:06)
[2018-08-09] MEDS: FLORASTOR (S. BOULARDII) 250 MG CAP PO SCH (10:06)
[2018-08-09] MEDS: ASCORBIC ACID 500 MG TAB PO SCH ×2 (10:07→21:41)
--- NOTE | 2018-08-09 10:30 | NUR ---
MD AT BEDSIDE DISCUSSING POC WITH PT, CONT CARE
--- NOTE | 2018-08-09 11:44 | NUR ---
Nutrition Follow-up Notes Wt.: 88.5 kg Pt was sleeping with no family by bedside. per pt records pt with GI bleed duet o gastric ulcer. pt with foot ulcer on abx. pt with no distress noted. pt is currently on CCHO 60 gm with prostat 1 packet bid with adequate PO of > 75% x 4 per RN doc Est. Needs: 1800 kcal to 2450 kcal (25-30 kcal/kgBW), 82 gms to 114 gms pro (1.0-1.4 gms/kgBW d/t severe hypoalbuminemia, wound healing). Will continue to monitor pertinent labs and reassess nutrient need prn Labs: GLU 235 H, CA 8.1 L. Skin: Panfilo scale 16, mod risk, pt with DFU per masonry supervisor. Pls refer to roll cutting operator's notes for details re: tx plans. pt on MVI/C GI: Pt had 1 BM on 08/06 per masonry supervisor. PES: Altered nutrition related lab values r/t acute/chronic medical condition aeb hyperglycemia, elev. BUN,HbA1c, LFTs, hyperbilirubinemia, hypocalcemia an severe hypoalbuminemia Will continue to monitor PO intake, skin status, pertinent labs and weight trend. F/u in 3 to 5 days. Rec.: 1.) Continue close supervision and feeding assistance prn during meals. 2.) Refer to CDE/RD for further nutrition educ. and weight monitoring upon discharge. 3.) Continue current plan of care.
--- NOTE | 2018-08-09 14:15 | NUR ---
DRESSING CHANGE PT MEDICATED PRIOR, DRESSING CHANGE PER ORDERS, MINIMAL DRAINAGE NOTED, FOUL ODOR PRESENT. PT TOLERATING WELL, CONT CARE
--- NOTE | 2018-08-09 16:43 | NUR ---
FAMILY UPDATE CALLED FAMILY MEMBER PETRA, PER PATIENT REQUEST TO UPDATE ON POC, NO ANSWER, WILL ATTEMPT AT A LATER TIME, [facility]
[2018-08-09] MEDS: LEVOFLOXACIN 750MG 150 ML IV SCH (17:45)
--- NOTE | 2018-08-09 19:30 | NUR ---
Opening shift note Patient in bed alert and oriented watching TV. Pt's respiration even and unlabored, denies pain or discomfort at this time. Plan of care discussed, will continue to monitor.
--- NOTE | 2018-08-09 20:42 | NUR ---
Received call back from spouse. Update on POC given after password provided. Spouse verbalized understanding.
[2018-08-09] MEDS: INSULIN LANTUS (GLARGINE) 1 /0.01ml (100units/ml) SC SCH (21:57)
[2018-08-10 05:50] VITALS: BP 119/60
[2018-08-10 06:01] LABS: Basophils # (auto) 0 uL; Basophils % (auto) 0.3 % (0.0-2.0); Eosinophils # (auto) 0.1 uL; Eosinophils % (auto) 0.4 % (0.0-7.0); Hematocrit 27.9 % (41.0-53.0); Hemoglobin 9.1 g/dL (13.5-17.5); Lymphocytes % (auto) 13.3 % (10.0-50.0); Mean Corpuscular Hemoglobin 28.3 pg (28.0-32.0); Mean Corpuscular Hgb Conc. 32.8 g/dL (32.0-36.0); Mean Corpuscular Volume 86.3 fL (80.0-100.0); Monocytes # (auto) 0.9 uL; Monocytes % (auto) 6.2 % (0.0-12.0); Neutrophils # (auto) 11.7 uL; Neutrophils % (auto) 79.8 % (37.0-80.0); Nucleated Red Blood Cells % 0.1 %; Platelet Count (auto) 310 10^3/uL (140-450); Red Blood Cells 3.23 10^6/uL (4.5-5.90); Red Cell Distribution Width 15.4 % (11.8-14.3); White Blood Cell 14.7 10^3/uL (4.4-10.8)
[2018-08-10] MEDS: ACCU-CHEK COMFORT CURVE STRIP VI SCH ×4 (06:02→22:19)
[2018-08-10] MEDS: CLINDAMYCIN 600MG IV 50 ML IV SCH ×3 (06:02→22:19)
[2018-08-10] MEDS: InsuLIN REG 1unit/0.01ml Soln (100units/ml) SC SCH ×4 (06:09→22:27)
--- NOTE | 2018-08-10 07:45 | NUR ---
Opening Patient awake, eating breakfast. Bed in lowest position, call light within reach, no distress noted at this time Will f/u with morning assessment.
[2018-08-10] MEDS: Pro-Stat SF 30ml Vanilla PO SCH ×2 (08:00→18:09)
[2018-08-10 09:00] VITALS: BP 104/57
[2018-08-10] MEDS: MORPHINE SULFATE 10 MG/ML INJ 1ML SDV IV PRN ×2 (10:07→22:20)
[2018-08-10] MEDS: ASCORBIC ACID 500 MG TAB PO SCH ×2 (10:08→22:19)
[2018-08-10] MEDS: PANTOPRAZOLE 40 MG TAB PO SCH ×2 (10:08→22:19)
[2018-08-10] MEDS: MULTIPLE VITAMINS W/ MINERALS TAB PO SCH (10:08)
[2018-08-10] MEDS: FLORASTOR (S. BOULARDII) 250 MG CAP PO SCH (10:08)
[2018-08-10] MEDS: SODIUM CHLOR 0.9% PF (SALINE LOCK) 10ML VIAL/SYR IV SCH ×2 (10:08→22:19)
[2018-08-10] MEDS ORDERED: PATIENTS OWN MEDICATION PO SCH (12:45)
[2018-08-10 13:00] VITALS: BP 120/66
[2018-08-10 17:00] VITALS: BP 126/71
[2018-08-10] MEDS: LEVOFLOXACIN 750MG 150 ML IV SCH (17:01)
--- NOTE | 2018-08-10 19:00 | NUR ---
closing patient in bed, bed in lowest position, call light within reach. no distress noted at this time endorsed care to noc nurse
--- NOTE | 2018-08-10 20:40 | NUR ---
Opening Shift Note Assumed care of patient, awake and alert, oriented x4. No S/S of distress/SOB, c/o left foot pain 03/17, educated on pain mgt, will medicate as ordered and will reassess. Instructed on POC and to call for assist PRN, will continue to monitor for changes Q1hr and PRN. Side rails up x2, bed in lowest locked position. Continue care.
[2018-08-10 21:43] VITALS: BP 119/65
[2018-08-10] MEDS: CLARITHROMYCIN 500 MG PO SCH (22:19)
[2018-08-10] MEDS: INSULIN LANTUS (GLARGINE) 1 /0.01ml (100units/ml) SC SCH (22:27)
[2018-08-11] MEDS: MORPHINE SULFATE 10 MG/ML INJ 1ML SDV IV PRN ×3 (02:25→22:23)
[2018-08-11 05:03] VITALS: BP 116/74
[2018-08-11 05:13] LABS: Basophils # (auto) 0 uL; Basophils % (auto) 0.2 % (0.0-2.0); Eosinophils # (auto) 0.2 uL; Hematocrit 26.7 % (41.0-53.0); Hemoglobin 8.6 g/dL (13.5-17.5); Lymphocytes # (auto) 2.1 uL; Lymphocytes % (auto) 13.8 % (10.0-50.0); Mean Corpuscular Hemoglobin 27.7 pg (28.0-32.0); Mean Corpuscular Hgb Conc. 32.1 g/dL (32.0-36.0); Mean Corpuscular Volume 86.3 fL (80.0-100.0); Monocytes # (auto) 0.8 uL; Monocytes % (auto) 5.2 % (0.0-12.0); Neutrophils % (auto) 79.8 % (37.0-80.0); Platelet Count (auto) 344 10^3/uL (140-450); Red Cell Distribution Width 15.8 % (11.8-14.3)
[2018-08-11 05:31] LABS: BUN/Creatinine Ratio 14.4; Calcium 8.4 mg/dL (8.5-10.1); Potassium 4.2 mmol/L (3.5-5.1)
[2018-08-11] MEDS: ACCU-CHEK COMFORT CURVE STRIP VI SCH ×4 (06:06→22:28)
[2018-08-11] MEDS: InsuLIN REG 1unit/0.01ml Soln (100units/ml) SC SCH ×4 (06:06→22:29)
[2018-08-11] MEDS: CLINDAMYCIN 600MG IV 50 ML IV SCH (06:06)
--- NOTE | 2018-08-11 07:40 | NUR ---
opening patient asleep in bed, bed in lowest position, call light within reach. No distress noted at this time. Contact precautions are off per noc nurse, and results new MRSA of nares is negative from 08/03. Todays plan talk to MD about a stool softener per patient request HGB 8.6 trending down WBC 15 trending up RBC 3.10 trending down Sodium 134 calcium 8.4
[2018-08-11] MEDS: Pro-Stat SF 30ml Vanilla PO SCH ×2 (08:00→18:00)
[2018-08-11 09:00] VITALS: BP 164/70
[2018-08-11] MEDS: PANTOPRAZOLE 40 MG TAB PO SCH ×2 (10:00→22:24)
[2018-08-11] MEDS: ASCORBIC ACID 500 MG TAB PO SCH ×2 (10:01→22:24)
[2018-08-11] MEDS: MULTIPLE VITAMINS W/ MINERALS TAB PO SCH (10:01)
[2018-08-11] MEDS: CLARITHROMYCIN 500 MG PO SCH ×2 (10:01→22:24)
[2018-08-11] MEDS: FLORASTOR (S. BOULARDII) 250 MG CAP PO SCH (10:01)
[2018-08-11] MEDS: SODIUM CHLOR 0.9% PF (SALINE LOCK) 10ML VIAL/SYR IV SCH ×2 (10:05→22:25)
[2018-08-11 13:00] VITALS: BP 137/75
--- NOTE | 2018-08-11 13:19 | NUR ---
md katherine fortune confirmed antibiotic administration, no plans for discharge
[2018-08-11 17:00] VITALS: BP 124/83
[2018-08-11] MEDS: LEVOFLOXACIN 750MG 150 ML IV SCH (17:24)
--- NOTE | 2018-08-11 19:00 | NUR ---
closing patient in bed, bed in lowest position, call light within reach. no distress noted at this time endorsed care to noc nurse
--- NOTE | 2018-08-11 20:00 | NUR ---
Opening Shift Note Assumed care of patient, awake and alert, oriented x4. No S/S of distress/SOB, pain. Instructed on POC and to call for assist PRN, will continue to monitor for changes Q1hr and PRN. Side rails up x2, bed in lowest locked position. Continue care.
--- NOTE | 2018-08-11 21:10 | NUR ---
REPORT GIVEN TO ALOK HAM TO ASSUME PT CARE.
[2018-08-11 22:00] VITALS: BP 124/65
[2018-08-11] MEDS: AMOXICILLIN/CLAVUL 875 MG TAB PO SCH (22:24)
[2018-08-11] MEDS: ACETAMINOPHEN 500 MG TAB PO PRN (22:24)
[2018-08-11] MEDS: INSULIN LANTUS (GLARGINE) 1 /0.01ml (100units/ml) SC SCH (22:28)
[2018-08-12] MEDS: MORPHINE SULFATE 10 MG/ML INJ 1ML SDV IV PRN ×4 (04:20→21:04)
--- NOTE | 2018-08-12 04:35 | NUR ---
DRESSING CHANGED TO LEFT FOOT AND JOSEPH. PATIENT TOLERATED WELL.
[2018-08-12 05:00] VITALS: BP 122/66
[2018-08-12 05:14] LABS: Basophils # (auto) 0 uL; Basophils % (auto) 0.3 % (0.0-2.0); Eosinophils # (auto) 0.1 uL; Eosinophils % (auto) 1.1 % (0.0-7.0); Hematocrit 26.6 % (41.0-53.0); Hemoglobin 8.5 g/dL (13.5-17.5); Lymphocytes % (auto) 15.5 % (10.0-50.0); Mean Corpuscular Hemoglobin 27.6 pg (28.0-32.0); Mean Corpuscular Volume 86.1 fL (80.0-100.0); Monocytes # (auto) 0.7 uL; Monocytes % (auto) 5.3 % (0.0-12.0); Neutrophils # (auto) 10.2 uL; Neutrophils % (auto) 77.8 % (37.0-80.0); Platelet Count (auto) 363 10^3/uL (140-450); Red Blood Cells 3.08 10^6/uL (4.5-5.90); Red Cell Distribution Width 15.5 % (11.8-14.3); White Blood Cell 13.2 10^3/uL (4.4-10.8)
[2018-08-12 05:32] LABS: Albumin 1.2 g/dL (3.4-5.0); BUN/Creatinine Ratio 12.5; Calcium 8.1 mg/dL (8.5-10.1); Magnesium 1.9 mg/dL (1.6-2.6); Potassium 4.2 mmol/L (3.5-5.1)
[2018-08-12 05:43] LABS: Bilirubin, Total 0.5 mg/dL (0.2-1.0); CRP High Sensitivity 15.4 mg/dL (< 0.3); Total Protein 7.4 g/dL (6.4-8.2)
[2018-08-12] MEDS: InsuLIN REG 1unit/0.01ml Soln (100units/ml) SC SCH ×4 (06:38→21:08)
[2018-08-12] MEDS: ACCU-CHEK COMFORT CURVE STRIP VI SCH ×4 (06:38→21:14)
--- NOTE | 2018-08-12 07:30 | NUR ---
Opening Shift Note Assumed care of patient, awake and alert. No S/S of distress/SOB. stated tolerable pain at this time. Instructed on POC and to call for assist PRN, will continue to monitor for changes Q1hr and PRN. Per pt, he have a right prosthetic leg which he uses to ambulate at home but he is unsure where it is now and whether it was lost in the ER. Pt stated he will ask his first as it's possible that she took it home
[2018-08-12 08:00] VITALS: BP 117/70
[2018-08-12 08:35] VITALS: BP 117/70
[2018-08-12] MEDS: PANTOPRAZOLE 40 MG TAB PO SCH ×2 (09:19→21:13)
[2018-08-12] MEDS: FLORASTOR (S. BOULARDII) 250 MG CAP PO SCH (09:19)
[2018-08-12] MEDS: AMOXICILLIN/CLAVUL 875 MG TAB PO SCH ×2 (09:19→21:13)
[2018-08-12] MEDS: ASCORBIC ACID 500 MG TAB PO SCH ×2 (09:19→21:13)
[2018-08-12] MEDS: MULTIPLE VITAMINS W/ MINERALS TAB PO SCH (09:19)
[2018-08-12] MEDS: SODIUM CHLOR 0.9% PF (SALINE LOCK) 10ML VIAL/SYR IV SCH ×2 (09:20→21:14)
[2018-08-12] MEDS: CLARITHROMYCIN 500 MG PO SCH ×2 (09:20→21:14)
[2018-08-12] MEDS: Pro-Stat SF 30ml Vanilla PO SCH ×2 (09:26→18:04)
--- NOTE | 2018-08-12 10:50 | NUR ---
WOUND DRESSING PER NOC RN, DRESSING WAS JUST CHANGED THIS AM. CHANGE PRN, OTHERWISE, DRESSING CHANGE WILL BE DUE TOMORROW MORNING.
[2018-08-12 12:44] VITALS: BP 122/66
--- NOTE | 2018-08-12 14:00 | NUR ---
DEMETRI JARVIS MADE AWARE OF PT'S MISSING PROSTHETIC LEG.
--- NOTE | 2018-08-12 14:34 | NUR ---
CALLED ER RE: PT'S LEG PROSTHESIS. PER ER THEY DON'T HAVE IT DOWN THERE. SUGGESTED THAT WE CHECK WITH EVS.
--- NOTE | 2018-08-12 14:35 | NUR ---
PAGED EVS PER CHEMICAL LIBRARIAN SHE WILL PAGED THE STATISTICAL TECHNICIAN. WAITING FOR CALL BACK.
--- NOTE | 2018-08-12 16:00 | NUR ---
NO CALL FROM EVS STUNNER RE-PAGED COMPENSATION CONSULTING MANAGER. WILL WAIT FOR CALL BACK.
--- NOTE | 2018-08-12 17:00 | NUR ---
STILL NO CALL BACK FROM [facility]S DEPT.
[2018-08-12 17:02] VITALS: BP 99/63
[2018-08-12] MEDS: LEVOFLOXACIN 750MG 150 ML IV SCH (18:04)
--- NOTE | 2018-08-12 19:13 | NUR ---
CLOSING NOTES PT UP IN BED, EATING DINNER AND WATCHING TV. VERBALIZED COMFORT AND TOLERABLE PAIN. NO DISTRESS NOTED.
--- NOTE | 2018-08-12 19:35 | NUR ---
Opening Shift Note Assumed care of patient, awake and alert. No S/S of distress/SOB or pain. Instructed on POC and to call for assist PRN, will continue to monitor for changes Q1hr and PRN.
[2018-08-12] MEDS: INSULIN LANTUS (GLARGINE) 1 /0.01ml (100units/ml) SC SCH (21:13)
[2018-08-12 22:00] VITALS: BP 107/62
[2018-08-13] MEDS: MORPHINE SULFATE 10 MG/ML INJ 1ML SDV IV PRN ×4 (03:52→21:56)
[2018-08-13 05:00] VITALS: BP 118/63
[2018-08-13 05:20] LABS: Basophils # (auto) 0 uL; Basophils % (auto) 0.3 % (0.0-2.0); Hemoglobin 8.3 g/dL (13.5-17.5); Lymphocytes # (auto) 2.7 uL; Monocytes # (auto) 0.7 uL
[2018-08-13 05:22] LABS: Eosinophils # (auto) 0.2 uL; Eosinophils % (auto) 1.3 % (0.0-7.0); Hematocrit 25.7 % (41.0-53.0); Lymphocytes % (auto) 19.1 % (10.0-50.0); Mean Corpuscular Hemoglobin 27.6 pg (28.0-32.0); Mean Corpuscular Hgb Conc. 32.2 g/dL (32.0-36.0); Mean Corpuscular Volume 85.8 fL (80.0-100.0); Monocytes % (auto) 4.8 % (0.0-12.0); Neutrophils # (auto) 10.5 uL; Neutrophils % (auto) 74.5 % (37.0-80.0); Platelet Count (auto) 358 10^3/uL (140-450); Red Cell Distribution Width 15.6 % (11.8-14.3)
[2018-08-13 05:25] LABS: Albumin 1.4 g/dL (3.4-5.0); BUN/Creatinine Ratio 14.3; Calcium 8.4 mg/dL (8.5-10.1); Magnesium 1.9 mg/dL (1.6-2.6); Potassium 3.8 mmol/L (3.5-5.1)
[2018-08-13 05:35] LABS: Bilirubin, Total 0.5 mg/dL (0.2-1.0); CRP High Sensitivity 15.3 mg/dL (< 0.3); Phosphorus 3.1 mg/dL (2.5-4.90); Total Protein 7.8 g/dL (6.4-8.2)
[2018-08-13] MEDS: InsuLIN REG 1unit/0.01ml Soln (100units/ml) SC SCH ×4 (06:40→21:55)
[2018-08-13] MEDS: ACCU-CHEK COMFORT CURVE STRIP VI SCH ×4 (06:41→21:55)
--- NOTE | 2018-08-13 06:45 | NUR ---
AM BLOOD SUGAR 62 INSULIN HELD. PATIENT ASYMPTOMATIC BUT 240 ML'S OF JUICE GIVEN. WILL MONITOR.
--- NOTE | 2018-08-13 07:04 | NUR ---
CARE ENDORSED TO DAY NURSE AFTER SBAR REPORT GIVEN. PATIENT RESTING IN BED. NO DISTRESS NOTE.
[2018-08-13 08:00] VITALS: BP 122/73
[2018-08-13 08:47] VITALS: BP 122/73
[2018-08-13] MEDS: MULTIPLE VITAMINS W/ MINERALS TAB PO SCH (09:49)
[2018-08-13] MEDS: FLORASTOR (S. BOULARDII) 250 MG CAP PO SCH (09:49)
[2018-08-13] MEDS: AMOXICILLIN/CLAVUL 875 MG TAB PO SCH ×2 (09:49→21:54)
[2018-08-13] MEDS: ASCORBIC ACID 500 MG TAB PO SCH ×2 (09:49→21:55)
[2018-08-13] MEDS: PANTOPRAZOLE 40 MG TAB PO SCH ×2 (09:49→21:55)
[2018-08-13] MEDS: SODIUM CHLOR 0.9% PF (SALINE LOCK) 10ML VIAL/SYR IV SCH ×2 (09:50→22:00)
[2018-08-13] MEDS: CLARITHROMYCIN 500 MG PO SCH ×2 (09:50→21:54)
[2018-08-13] MEDS: Pro-Stat SF 30ml Vanilla PO SCH ×2 (09:50→18:26)
--- NOTE | 2018-08-13 10:30 | NUR ---
WOUND CARE NOTE: IN TO SEE PATIENT AT THIS TIME FOR WOUND REEVALUATION. PATIENT HAS CURRENT MARY SCORE OF 18. PATIENT'S LLE SHOWS NO CHANGE, WITH PAD/PVD WITH GANGRENE NOTED TO LLE FROM TOES TO MID JOSEPH. CLEANSED/IRRIGATED SKIN WITH BETADINE RINSE, COVERING WITH FOAM AND KERLIX WRAP PER MD ORDER. ELEVATED LLE UP ONTO PILLOW FOR EDEMA CONTROL. RECOMMEND: CONTINUED FOLLOW UP BY LIGHT TECHNICIAN, CONTINUATION WITH ALL WOUND CARE ORDERS PREVIOUSLY PRESCRIBED BY MD. WOUND CARE TEAM WILL CONTINUE TO MONITOR. WOUND PHOTOS WERE TAKEN AT THIS TIME FOR REFERENCE. Addendum: 08/13/18 at 1410 by Halley Donnelly RN Amended: Links added.
[2018-08-13 12:59] VITALS: BP 126/74
[2018-08-13] MEDS: SODIUM CHLORIDE 0.9% 1,000 ML IV SCH ×2 (16:13→23:20)
[2018-08-13] MEDS: ALBUMIN 25% 100 ML IV SCH ×2 (16:13→23:15)
--- NOTE | 2018-08-13 16:30 | NUR ---
PAIN PT CALLED FOR PAIN MEDS. VERBALIZED PAIN ON FOOT 9. MORPHINE IV GIVEN ORDERED. TOLERATED WELL.
[2018-08-13 17:00] VITALS: BP 119/79
[2018-08-13] MEDS: LEVOFLOXACIN 750MG 150 ML IV SCH (17:29)
--- NOTE | 2018-08-13 18:00 | NUR ---
RIGHT LEG PROSTHESIS FOUND IN ER. PT AND HIS ARE AWARE. PROSTHESIS IS NOW AT BEDSIDE.
--- NOTE | 2018-08-13 19:30 | NUR ---
CLOSING NOTES REPORT GIVEN TO UNA UP RN. PT RESTING IN BED, WATCHING TV. NO DISTRESS NOTED. VERBALIZED COMFORT.
--- NOTE | 2018-08-13 20:00 | NUR ---
OPENING NOTE RECEIVED REPORT FROM VANESSA RN. ASSUMING ROLE OF CARE OF PATIENT AT THIS TIME. PATIENT SHOWING NO SIGN OF DISTRESS, SHORTNESS OF BREATH, BUT PATIENT STATES PAIN AT 9/10. WILL MEDICATE WHEN AVAILABLE. LEVAQUIN MEDICATION STILL INFUSING, WILL ADMINISTER ALBUMIN WHEN FINISHED. PATIENT EDUCATED ON PLAN OF CARE FOR THE NIGHT. PATIENT VERBALIZED UNDERSTANDING. BED LOWERED, CALL LIGHT WITHIN REACH, AND PATIENT WILL BE ROUNDED ON EVERY HOUR AND NEEDED.
[2018-08-13] MEDS: INSULIN LANTUS (GLARGINE) 1 /0.01ml (100units/ml) SC SCH (21:55)
[2018-08-13 22:00] VITALS: BP 138/83
--- NOTE | 2018-08-13 22:00 | NUR ---
TEMP RECHECKED. PATIENT TEMP WAS 99.9. RECHECK 99.0. PATIENT APPEARS STABLE. WILL CONTINUE TO MONITOR.
[2018-08-14] MEDS: ALBUMIN 25% 100 ML IV SCH (02:00)
[2018-08-14] MEDS: MORPHINE SULFATE 10 MG/ML INJ 1ML SDV IV PRN (03:51)
[2018-08-14 05:00] VITALS: BP 134/67
[2018-08-14 05:06] LABS: Basophils # (auto) 0 uL; Eosinophils # (auto) 0.2 uL; Lymphocytes # (auto) 1.6 uL; Mean Corpuscular Hemoglobin 28.4 pg (28.0-32.0); Mean Corpuscular Hgb Conc. 33.1 g/dL (32.0-36.0); Monocytes # (auto) 0.6 uL
[2018-08-14 05:09] LABS: Basophils % (auto) 0.2 % (0.0-2.0); Eosinophils % (auto) 1.9 % (0.0-7.0); Hematocrit 23.8 % (41.0-53.0); Hemoglobin 7.9 g/dL (13.5-17.5); Lymphocytes % (auto) 15.3 % (10.0-50.0); Monocytes % (auto) 5.3 % (0.0-12.0); Neutrophils # (auto) 8.3 uL; Neutrophils % (auto) 77.3 % (37.0-80.0); Platelet Count (auto) 306 10^3/uL (140-450); Red Blood Cells 2.77 10^6/uL (4.5-5.90); Red Cell Distribution Width 15.5 % (11.8-14.3); White Blood Cell 10.7 10^3/uL (4.4-10.8)
[2018-08-14 05:23] LABS: Albumin 1.9 g/dL (3.4-5.0); Magnesium 1.9 mg/dL (1.6-2.6); Potassium 4.1 mmol/L (3.5-5.1)
[2018-08-14 05:36] LABS: BUN/Creatinine Ratio 12.5; Bilirubin, Total 0.6 mg/dL (0.2-1.0); CRP High Sensitivity 13.7 mg/dL (< 0.3); Total Protein 7.4 g/dL (6.4-8.2)
[2018-08-14] MEDS: ACCU-CHEK COMFORT CURVE STRIP VI SCH ×3 (06:31→17:37)
[2018-08-14] MEDS: InsuLIN REG 1unit/0.01ml Soln (100units/ml) SC SCH ×3 (06:32→18:04)
--- NOTE | 2018-08-14 06:48 | NUR ---
SPOKE WITH PHARMACY REGARDING ALBUMIN DUE TO DELAYS IN ADMINISTRATION, MEDICATION TIMED OUT AND NO LONGER AVAILABLE. PER PHARMACY, NEW ORDER WILL BE PLACED SO TO BE ABLE TO ADMINISTER AT CORRECT TIME. WILL CONTINUE TO MONITOR PATIENT.
[2018-08-14] MEDS ORDERED: ALBUMIN 25% 100 ML IV SCH ×2 (07:00→07:15)
--- NOTE | 2018-08-14 07:15 | NUR ---
Opening Shift Note Received report from Josh RN. Assumed care of patient, asleep. No S/S of distress/SOB or pain. Noted dry & intact dressing on left foot. No active bleeding noted. Will continue to asses q every hour and as PRN.
[2018-08-14] MEDS: ALBUMIN 25% 50 ML IV SCH ×2 (07:28→09:37)
[2018-08-14] MEDS: Pro-Stat SF 30ml Vanilla PO SCH ×2 (07:31→17:37)
--- NOTE | 2018-08-14 07:35 | NUR ---
ALBUMIN DOSE DIVIDED INTO 2 DOSES OF 50 ML BOTTLES DUE TO LACK OF 100 ML ALBUMIN BOTTLES. PHARMACY HAS SWITCHED TO DIVIDED DOSES OF 50 ML. WILL ADMINISTER AT THIS TIME.
--- NOTE | 2018-08-14 07:36 | NUR ---
CLOSING NOTE CARE ENDORSED TO DAYSHIFT RN. PATIENT RESTING COMFORTABLY AND SHOWING NO SIGN OF DISTRESS.
[2018-08-14 08:00] VITALS: BP 106/54
[2018-08-14 08:58] VITALS: BP 106/54
[2018-08-14] MEDS: MULTIPLE VITAMINS W/ MINERALS TAB PO SCH (09:37)
[2018-08-14] MEDS: AMOXICILLIN/CLAVUL 875 MG TAB PO SCH (09:37)
[2018-08-14] MEDS: SODIUM CHLOR 0.9% PF (SALINE LOCK) 10ML VIAL/SYR IV SCH (09:37)
[2018-08-14] MEDS: PANTOPRAZOLE 40 MG TAB PO SCH (09:37)
[2018-08-14] MEDS: FLORASTOR (S. BOULARDII) 250 MG CAP PO SCH (09:37)
[2018-08-14] MEDS: ASCORBIC ACID 500 MG TAB PO SCH (09:37)
[2018-08-14] MEDS: CLARITHROMYCIN 500 MG PO SCH (09:38)
[2018-08-14 13:00] VITALS: BP 148/76
[2018-08-14] MEDS: LEVOFLOXACIN 750MG 150 ML IV SCH (17:37)
--- NOTE | 2018-08-14 18:00 | NUR ---
CLEANED WOUND ON LEFT FOOT WITH STERILE NS THEN PATTED DRY WITH STERILE GAUZE. TOOK PICTURES REFERENCE FOR DISCHARGE AND FILLED OUT WOUND CARE FORMS. RINSE THE FOOT WITH BETADINE AND COVERED WITH NON-FOAMS, SECURED WITH KERLIX. PATIENT TOLERATED WELL.
--- NOTE | 2018-08-14 19:30 | NUR ---
ENDORSED TO PAUL HAM THAT PATIENT IS FOR DISCHARGE. PICC LINE TO BE REMOVED.
--- NOTE | 2018-08-14 19:30 | NUR ---
PM ASSESSMENT PT A/OX4, ALL BELONGINGS BAGGED AND W/ PT. NO SOB OR DISTRESS. PROSTHETIC LEG NEXT TO PT. PICC ON RT UPPER ARM, INTACT AND PATENT, INFUSING LEVAQUIN, PT TOLERATING WELL. POC DISCUSSED, PT STATED UNDERSTANDING. SAFETY PRECAUTIONS IN PLACE. WILL CONTINUE TO MONITOR.
--- NOTE | 2018-08-14 20:51 | NUR ---
DISCHARGE PER DAY NURSE FARZAD RN PIC OF WOUNDS DONE. 2 STAFF MEMEBERS VERIFIED ALL PAPERWORK BEFORE GIVEN TO PT. DC INSTRUCTIONS GIVEN, PT STATED UNDERSTANDING. PICC LINE REMOVED, NO ACTIVE BLEEDING NOTED, PRESSURE DRESSING APPLIED, PT TOLERATED WELL. PT BANDS REMOVED. ALL BELONGINGS TAKEN W/ PT. PT WC OUT OF HOSPITAL AND INTO PERSONAL VEHICLE W/ FAMILY SAFELY. Please follow up with your primary care physician within 1-2 weeks of discharge. Please follow up at [facility] as needed. Hours of operation are Tuesday-Tuesday 8:00 am - 8:00pm. Phone # is [phone] ext. [phone]. Address is [id number] [place] [id number]. A coupon to Urgent Care has been provided. You can also follow up at these other facilities: [facility] located at [address] [address] [address] [address]. Phone # is [phone]. [facility] located [address] [place] [place] [address]. Phone # is [phone]. Please contact the Continuum Pouch Making Machine Operator and [facility] medical office representative for assistance and choosing a primary care physician. Contact information for both personnel has been provided.
== END 2018-08-14 20:51 | disposition home or self-care (01) | DRG 871 ==
LOC: EDBD 16:49 → ER 16:49 → TELE 08-02 01:37 → TELE-CENTR 08-02 23:00 → CENTRAL 08-05 11:04
PROVIDERS: ADMIT Nurse Practitioner Family; ATTEND Internal Medicine
PROC: 0DB68ZX Excision of Stomach, Via Natural or Artificial Opening Endoscopic, Diagnostic (ICD-10-PCS; 2018-08-02)
PROC: 02HV33Z Insertion of Infusion Device into Superior Vena Cava, Percutaneous Approach (ICD-10-PCS; principal; 2018-08-04)
PROC: 30233N1 Transfusion of Nonautologous Red Blood Cells into Peripheral Vein, Percutaneous Approach (ICD-10-PCS; 2018-08-08)
DX: A41.9 Sepsis, unspecified organism (principal); K26.4 Chronic or unspecified duodenal ulcer with hemorrhage; E11.10 Type 2 diabetes mellitus with ketoacidosis without coma; N17.0 Acute kidney failure with tubular necrosis; E44.0 Moderate protein-calorie malnutrition; M86.8X7 Other osteomyelitis, ankle and foot; L03.116 Cellulitis of left lower limb; B96.81 Helicobacter pylori [H. pylori] as the cause of diseases classified elsewhere; K29.80 Duodenitis without bleeding; K29.70 Gastritis, unspecified, without bleeding; K59.00 Constipation, unspecified; K20.9 Esophagitis, unspecified; E11.621 Type 2 diabetes mellitus with foot ulcer; L97.529 Non-pressure chronic ulcer of other part of left foot with unspecified severity; E11.69 Type 2 diabetes mellitus with other specified complication; K80.20 Calculus of gallbladder without cholecystitis without obstruction; I10 Essential (primary) hypertension; E78.5 Hyperlipidemia, unspecified; E11.51 Type 2 diabetes mellitus with diabetic peripheral angiopathy without gangrene; F41.9 Anxiety disorder, unspecified; Z82.3 Family history of stroke; Z82.49 Family history of ischemic heart disease and other diseases of the circulatory system; Z83.3 Family history of diabetes mellitus; Z91.19 Patient's noncompliance with other medical treatment and regimen; Z89.511 Acquired absence of right leg below knee; Z68.25 Body mass index [BMI] 25.0-25.9, adult; B96.20 Unspecified Escherichia coli [E. coli] as the cause of diseases classified elsewhere; B95.61 Methicillin susceptible Staphylococcus aureus infection as the cause of diseases classified elsewhere
CPT/HCPCS: 36415; 36569; 36600; 71045; 73718; 74176; 80048; 80053; 80202; 80307; 80320; 81001; 82010; 82270; 82805; 82962; 83036; 83605; 83735; 83880; 84100; 84311; 84484; 85025; 85379; 85610; 85652; 85730; 86141; 86850; 86900; 86901; 86920; 87077; 87081; 87086; 87186; 87205; 93005; 93926; 94640; 94761; 96361; 96374; 96375; 96376; 99291; C9113; G0378; J0696; J1815; J1956; J2250; J2405; J2543; J3490; J7060; P9047